=== PATIENT | female | born 1955 | race African-American/Black ===

== ENCOUNTER 2018-10-09 11:41 | Day surgery (SDC) | payer MEDICARE, MEDICAID ==
[~2018-10-09] VITALS: Ht 160 cm; Wt 82.6 kg
[~2018-10-09 11:41] MED LIST: ASPI-1393 PO; ATEN-42 PO; HYDR12.529 PO; LISI2.5T47 PO
[2018-10-09] MEDS ORDERED: LACTATED RINGERS 1,000 ML IV SCH (12:15)
[2018-10-09] MEDS ORDERED: ATEN50TA PO (12:29)
[2018-10-09] MEDS ORDERED: TRIAMCINOLONE ACETONIDE 40MG/ML 1ML VIAL ONE (12:30)
[2018-10-09] MEDS ORDERED: BUPIVACAINE HCL/PF 0.5% (5MG/ML) 10ML ONE (12:30)
[2018-10-09] MEDS ORDERED: LIDOCAINE HCL 1% 20ML VIAL (Pyxis) INJ ONE (12:30)
[2018-10-09] MEDS ORDERED: BACITRACIN 50,000 UNITS/VIAL ONE (12:31)
[2018-10-09] MEDS ORDERED: MIDAZOLAM HCL 2 MG/2 ML VIAL ONE (13:49)
[2018-10-09] MEDS ORDERED: SUCCINYLCHOLINE CHLORIDE 200MG/10ML IV ONE (13:49)
[2018-10-09] MEDS ORDERED: FENTANYL CITRATE/PF 50MCG/ML 2ML VIAL ONE (13:49)
[2018-10-09] MEDS ORDERED: LIDOCAINE HCL/PF 1% 10 MG/ML 5ML VIAL ONE (13:49)
[2018-10-09] MEDS ORDERED: ONDANSETRON HCL 4MG/2ML INJ ONE (13:49)
[2018-10-09] MEDS ORDERED: METOCLOPRAMIDE HCL 10MG/2ML VIAL ONE (13:49)
[2018-10-09] MEDS ORDERED: PROPOFOL 200MG/20ML VIAL IV ONE (13:49)
[2018-10-09] MEDS ORDERED: GLYCOPYRROLATE 0.2 MG/ML 2ML VIAL ONE (13:49)
[2018-10-09] MEDS ORDERED: SODIUM CHLORIDE 0.9% 1,000 ML IV ONE (14:48)
[2018-10-09] MEDS ORDERED: HYDROMORPHONE HCL/PF 2MG/ML CPJ IV PRN (15:00)
[2018-10-09] MEDS ORDERED: MEPERIDINE HCL/PF 25MG/ML CPJ IV PRN ×2 (15:00)
[2018-10-09] MEDS ORDERED: ONDANSETRON HCL 4MG/2ML INJ IV PRN (15:00)
== END 2018-10-09 16:30 | disposition home or self-care (01) ==
LOC: OR 11:41
PROVIDERS: ATTEND Podiatrist Foot & Ankle Surgery
DX: M20.5X1 Other deformities of toe(s) (acquired), right foot (principal); M77.51 Other enthesopathy of right foot and ankle; I10 Essential (primary) hypertension; F17.200 Nicotine dependence, unspecified, uncomplicated; B19.20 Unspecified viral hepatitis C without hepatic coma; E66.9 Obesity, unspecified; Z68.39 Body mass index [BMI] 39.0-39.9, adult; K21.9 Gastro-esophageal reflux disease without esophagitis; Z90.49 Acquired absence of other specified parts of digestive tract; Z90.710 Acquired absence of both cervix and uterus; Z98.84 Bariatric surgery status
CPT/HCPCS: 28285; 73660; 88305; 88311; J0330; J2250; J2405; J2704; J2765; J3010; J3301; J3490